=== PATIENT | female | born 2000 | race Caucasian/White ===

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

== ENCOUNTER → 2021-01-24 13:05 | Outpatient (BNVA) | payer OTHER, SELFPAY | PROVIDERS: PCP Pediatrics; Visit Provider Student in an Organized Health Care Education/Training Program ==

== ENCOUNTER → 2021-04-21 15:05 | Outpatient (BNVA) | payer OTHER, SELFPAY | PROVIDERS: PCP Obstetrics & Gynecology; Visit Provider Student in an Organized Health Care Education/Training Program | DX: M08.00 Unspecified juvenile rheumatoid arthritis of unspecified site (principal); M47.819 Spondylosis without myelopathy or radiculopathy, site unspecified; Z79.899 Other long term (current) drug therapy | CPT/HCPCS: 99212 ==

== ENCOUNTER 2023-06-27 15:00 | Outpatient (RCR) | payer OTHER, SELFPAY | END 2023-07-03 15:45 | disposition home or self-care (01) | LOC: HO.PT 15:00 | PROVIDERS: PCP Pediatrics; Visit Provider Internal Medicine Rheumatology | DX: M54.51 Vertebrogenic low back pain (principal) | CPT/HCPCS: 97110; 97162 ==

== ENCOUNTER 2023-10-30 14:00 | Outpatient (RCR) | payer MEDICAID, SELFPAY | END 2023-11-14 14:25 | disposition home or self-care (01) | LOC: HO.PT 14:00 | PROVIDERS: PCP Internal Medicine; Visit Provider Internal Medicine Rheumatology | DX: R53.1 Weakness (principal) | CPT/HCPCS: 97110; 97162; 97530 ==

== ENCOUNTER 2025-04-01 19:44 | Emergency (ER) | payer OTHER, MEDICAID, SELFPAY ==
[2025-04-01 19:47] VITALS: BP 146/92; PULSE 118; RESP 22; TEMP 36.7; O2SAT 99; BMI 45.4
[2025-04-01 20:00] VITALS: BP 123/72; PULSE 116; RESP 18; O2SAT 99
--- NOTE | 2025-04-01 20:07 | ED_ITS ---
HPI - Allergic Reaction General Chief complaint: Allergic Reaction Stated complaint: Allergic reaction to Hormone treatment Time Seen by Provider: 04/01/25 19:57 Source: patient Mode of arrival: ambulatory Limitations: no limitations History of Present Illness ED Provider: DR. Eduardo HPI narrative: 24-year-old female presented to the emergency department for evaluation of allergic reaction. Patient with known allergy to tree nuts today patient ate by accident a small piece of pizza contain cashew cheese, patient felt throat itching and feels bottom lip swelling, no difficulty breathing, no difficulty swallowing, no itching, no rash. did not think it is severe symptoms to use EpiPen. Related Data Home Medications ?Medication ?Instructions ?Recorded ?Confirmed escitalopram oxalate 5 mg tablet 5 mg PO DAILY 09/13/20 folic acid 1 mg tablet 1 mg PO DAILY 09/13/20 hydroxyzine HCl 10 mg tablet 10 mg PO BEDTIME 09/13/20 metformin 500 mg tablet 500 mg PO BID 09/13/20 methotrexate sodium 2.5 mg tablet 2.5 mg PO QWEEK 09/13/20 Previous Rx's ?Medication ?Instructions ?Recorded sulfasalazine 500 mg tablet 0.5 g PO BID #60 tabs 05/16/21 Allergies Allergy/AdvReac Type Severity Reaction Status Date / Time tree nut Allergy Anaphylaxis Verified 04/01/25 19:52 Review of Systems Review of Systems: all other systems are reviewed and are negative Constitutional: Reports as per HPI and Reports no additional constitutional complaints Eyes: Reports as per HPI and Reports no additional eye complaints Reports system reviewed and no additional complaints, except as documented Cardiovascular: Reports as per HPI and Reports no additional cardiovascular complaints Respiratory: Reports as per HPI and Reports no additional respiratory complaints Gastrointestinal: Reports as per HPI and Reports no additional gastrointestinal complaints Genitourinary: Reports no additional female genitourinary complaints Musculoskeletal: Reports no additional musculoskeletal complaints Skin/Breast: Reports system reviewed and no additional complaints, except as docu Psychiatric: Reports no additional psychiatric complaints Endocrine: Reports no additional endocrine complaints Hematologic/Lymphatic: Reports no additional hematologic/lymphatic complaints Allergic/Immunologic: Reports no additional allergic/immunologic complaints Reports system reviewed and no additional complaints, except as documented and Reports Abnormal speech present PMFSH Past Medical History Medical History GERD (gastroesophageal reflux disease) Sleep apnea Depression Diabetes Spondylo-arthropathy Juvenile rheumatoid arthritis Surgical History History of ankle surgery Family History Family History Father Diabetes Mother Arthritis Social History Social History Alcohol intake: never Patient Tobacco Use Status: Never used Tobacco Smoked in Last 30 Days: No e-Cigarette/Vaping Use: Never Used Use of substances other than those prescribed or required for medical reasons: No Advance Directives: No Advance Directives Information Provided: No Do you have a plan to hurt others: No Plan Physical Exam ED Vital Signs: Vital Signs - 24 hr 04/01/25 19:47 04/01/25 20:00 04/01/25 22:15 Temperature 98.0 F Pulse Rate 118 H 116 H 99 Respiratory Rate 22 H 18 16 Blood Pressure 146/92 H 123/72 108/61 Pulse Oximetry 99 99 98 Oxygen Delivery Method Room Air Room Air BMI result Body Mass Index 45.4 Vital signs have been reviewed and appear to be correct. Blood pressure elevated. Heart rate slightly elevated, Respiratory rate normal. Temperature normal. Oxygen saturation normal. Appearance: Alert. Oriented X3. No acute distress. Head: Normal external exam. Normocephalic. Atraumatic. No Matthews signs noted. No raccoon eyes noted Eyes: PERRLA. EOMI. Conjunctiva and sclera normal. Eyelids normal. ENT: TM's Normal. Pharynx normal. Uvula midline. Moist mucous membranes. No tr ismus noted. no stridor. No drooling noted. No muffled voice noted. Neck: Normal inspection. Neck supple. FROM. No adenopathy. Thyroid Normal. No meningeal signs. No neck mass noted. CVS: Normal heart rate and rhythm. Heart sound normal. No murmurs noted. Pulses normal throughout. Respiratory: No respiratory distress. Painless inspiration. Breath sounds normal. No wheezes/rales/rhonchi noted. Chest nontender. No accessory muscle usage noted or decreased air movement noted. Abdomen: Soft and nontender. Bowel sounds normal in all 4 quadrants. No distention noted. No organomegaly noted. No visible injury noted. Back: No CVA tenderness. Full range of motion noted. Skin: Skin warm and dry. Normal skin color. Normal skin turgor. No rashes/lesions/lacerations noted. Extremities: No lower extremity edema. Extremities exhibit normal range of motion. Extremities nontender. Neuro: Oriented X 3. Cranial nerve exam: II-XII are grossly intact No motor deficit. No sensory deficit. Reflexes normal. Course Reevaluation(s) Reevaluation #1: Feels better with improvement of patient's symptoms. tolerating p.o. intake, no abdominal pain, repeat abdominal exam shows no tenderness, no rebound tenderness, no guarding. Will discharge. Patient has enough EpiPen at home. Time: 22:19 Medications Administered Discontinued Medications Generic Name Dose Route Start Last Admin Trade Name Linusq PRN Reason Stop Dose Admin Diphenhydramine HCl 25 mg 04/01/25 20:05 04/01/25 20:11 Diphenhydramine Hcl 25 Mg Capsule PO 04/01/25 20:06 25 mg ONCE ONE Administration Famotidine 20 mg 04/01/25 20:05 04/01/25 20:11 Famotidine 20 Mg Tablet PO 04/01/25 20:06 20 mg ONCE ONE Administration Prednisone 60 mg 04/01/25 20:05 04/01/25 20:12 Prednisone 20 Mg Tablet PO 04/01/25 20:06 60 mg ONCE ONE Administration Medical Decision Making Differential Diagnosis Differential Diagnoses: The differential diagnosis associated with the presentation includes ( Allergic reaction, anaphylaxis, airway compromise, strep pharyngitis, viral pharyngitis.) Admission/Observation Consideration of admission/observation: Escalation of care including admission/observation considered Lab Data MDM Lab Attestation statement: I reviewed the patient's lab results. Labs: Lab Results 04/01/25 Range/Units 20:20 Influenza Type A (PCR) NEGATIVE (Negative) Influenza Type B (PCR) NEGATIVE (Negative) RSV RNA Qual (PCR) NEGATIVE (Negative) SARS-CoV-2 RNA (RT-PCR) NEGATIVE (Negative) S. pyogenes GrpA YO Negative (Negative) Discharge Plan Discharge Clinical Impression: Allergic reaction Patient Disposition: Home, Self-Care Instructions: General Allergic Reaction (ED) Prescriptions: No Action sulfasalazine 500 mg tablet 0.5 g PO BID Qty: 60 3RF folic acid 1 mg tablet 1 mg PO DAILY escitalopram oxalate 5 mg tablet 5 mg PO DAILY hydroxyzine HCl 10 mg tablet 10 mg PO BEDTIME methotrexate sodium 2.5 mg tablet 2.5 mg PO QWEEK Patient Comments: 8 tabs po. once a week metformin 500 mg tablet 500 mg PO BID Print Language: Maldivian
[2025-04-01] MEDS: Famotidine 20 MG TABLET PO (20:11)
[2025-04-01] MEDS: diphenhydrAMINE HCL 25 MG CAPSULE PO (20:11)
[2025-04-01] MEDS: predniSONE 20 MG TABLET 60 MG PO (20:12)
[2025-04-01 20:40] LABS: IDNOW Serial# 55D5AD1C; Strep A Nucleic Acid Negative (Negative)
[2025-04-01 21:09] LABS: Influenza A PCR NEGATIVE (Negative); Influenza B PCR NEGATIVE (Negative); Resp Syncy Virus RNA Qual PCR NEGATIVE (Negative); SARS COV2 PCR INHOUSE NEGATIVE (Negative)
[2025-04-01 22:15] VITALS: BP 108/61; PULSE 99; RESP 16; O2SAT 98
[2025-04-01 22:53] VITALS: BP 108/61; PULSE 99; RESP 16; TEMP 36.7; O2SAT 98
== END 2025-04-01 22:54 | disposition home or self-care (01) ==
PROVIDERS: Emergency Provider Emergency Medicine
DX: T78.40XA Allergy, unspecified, initial encounter (principal); L29.9 Pruritus, unspecified; X58.XXXA Exposure to other specified factors, initial encounter; Z03.818 Encounter for observation for suspected exposure to other biological agents ruled out
CPT/HCPCS: 0241U; 87651; 99283; 99284